=== PATIENT | male | born 1995 | race Caucasian/White ===

== ENCOUNTER 2023-01-05 10:32 | Outpatient (CLI) | payer OTHER, SELFPAY | END 2023-01-05 10:33 | disposition home or self-care (01) | PROVIDERS: Visit Provider Internal Medicine | DX: R74.01 Elevation of levels of liver transaminase levels (principal); E78.1 Pure hyperglyceridemia; F41.9 Anxiety disorder, unspecified | CPT/HCPCS: 80053; 80061 ==

== ENCOUNTER 2023-10-25 00:40 | Emergency (ER) | payer OTHER, SELFPAY ==
[2023-10-25 00:46] VITALS: BP 115/78; PULSE 80; RESP 16; TEMP 36.6; O2SAT 97; BMI 31.9
--- NOTE | 2023-10-25 01:00 | CRLHL7_ITS ---
For Patients: As a result of the Cures Act, medical imaging exams and procedure reports are released immediately into your electronic medical record. You may view this report before your referring provider. If you have questions, please contact your health care provider. Indication: Dropped weight on 1st metatarsal area Technique: Three views of the left foot Comparison: None Findings/Impression: Soft tissue contusion along the dorsal distal foot with no acute fracture or dislocation appreciated. Dictated by Mateo Rodriguez MD @ 10/25/2023 1:40:10 AM (Electronically Signed)
--- NOTE | 2023-10-25 01:09 | ED_ITS ---
HPI - Extremity Injury (Lower) General Date Seen: 10/25/23 Chief Complaint: Extremity Pain/Injury, Lower Stated Complaint: left foot pain Time Seen by Provider: 10/25/23 00:59 Source: patient Mode of arrival: ambulatory Limitations: no limitations History of Present Illness HPI Narrative: Patient is a 27-year-old male presenting to the emergency department for left foot pain. He states about 40 minutes prior to arrival he jumped 25 lb weight on top of his left foot while exercising. Adopted at about the base of the great toe. No other injuries noted. Is not taking anything for pain. States the area feels slightly numb but denies any other injuries. No other concerns noted at this time. Related Data Home Medications ?Medication ?Instructions ?Recorded ?Confirmed escitalopram oxalate 10 mg tablet 10 mg PO QDAY 01/05/23 03/03/23 Previous Rx's ?Medication ?Instructions ?Recorded alprazolam 0.25 mg tablet 0.25 mg PO BID PRN anxiety #10 tabs 01/05/23 Allergies Allergy/AdvReac Type Severity Reaction Status Date / Time No Known Drug Allergies Allergy Verified 10/25/23 00:46 Review of Systems Narrative: Pertinent systems reviewed and were negative unless stated in HPI PFSH PFSH Medical History (Updated 10/25/23 @ 01:49 by Scotty Francois DO) Anxiety ?F41.9 - Anxiety disorder, unspecified (ICD-10) Elevated liver transaminase level ?R74.01 - Elevation of levels of liver transaminase levels (ICD-10) Hypertriglyceridemia ?E78.1 - Pure hyperglyceridemia (ICD-10) Cholesteatoma ?H71.90 - Unspecified cholesteatoma, unspecified ear (ICD-10) Social History (Updated 01/05/23 @ 15:55 by Odette Richardson ~ [facility]) What is your current living situation?: I presently have a place to live Problems where you live: declined to answer In the past 12 months, utilities in danger of being shut off: no In past 12 months, lack of transportation kept you from medical appts, meetings, work, or getting things needed for daily living: no In the past 12 mos, have been you worried that your food would run out before you had money to buy more?: never true In the past 12 mos, the food you bought just didn't last and you didn't have money to buy more?: never true Smoking Status: Never smoker How often do you have a drink containing alcohol: never AUDIT-C Alcohol total score: 0 Non-prescribed substance use: denies use How often does anyone, including family, friends and others, physically hurt you : never How often does anyone, including family, friends and others, insult or talk down to you: never How often does anyone, including family, friends and others, threaten you with harm: never How often does anyone, including family, friends and others, scream or curse at you: never Little interest or pleasure in doing things: not at all Feeling down, depressed, or hopeless: more than half the days Exam Narrative: Exam Narrative: Const: Well-nourished, Well-developed, in mild distress Eyes: PERRL, no conjunctival injection, and symmetrical lids HENT: Atraumatic external nose and ears. Moist mucous membranes. Cardiovascular: Cap refills less than 2 seconds bilateral toes MSK:Extremities w/o deformity, decreased range of motion to the left great toe secondary to pain. Tenderness noted to the dorsal aspect of the base of the left great toe but no tenderness noted to the rest of the dorsal foot. No tenderness noted to the plantar foot. No tenderness around the ankle Skin: Warm, Dry. No rashes or lesions. Neuro: Normal Muscle tone, No focal neurological deficits. Psych: Awake, Alert, & Oriented x3. Appropriate mood and affect. Const: Vital Signs, click to edit/add: Vital Signs - 24 hr 10/25/23 00:46 Temperature 97.8 F Pulse Rate [Pulse Oximeter] 80 Respiratory Rate 16 Blood Pressure [Ri ght Upper Arm] 115/78 Pulse Oximetry 97 Oxygen Delivery Me thod Room Air Course Vital Signs Vital signs: Initial Vital Signs Temperature 97.8 F 10/25/23 00:46 Temperature Source Temporal Artery Scan 10/25/23 00:46 Pulse Rate 80 10/25/23 00:46 Respiratory Rate 16 10/25/23 00:46 Blood Pressure 115/78 10/25/23 00:46 Blood Pressure Mean 90 10/25/23 00:46 Blood Pressure Position Sitting 10/25/23 00:46 Pulse Oximetry 97 10/25/23 00:46 Oxygen Delivery Method Room Air 10/25/23 00:46 Vital Signs Temperature 97.8 F 10/25/23 00:46 Pulse Rate 80 10/25/23 00:46 Respiratory Rate 16 10/25/23 00:46 Blood Pressure 115/78 10/25/23 00:46 Pulse Oximetry 97 10/25/23 00:46 Oxygen Delivery Method Room Air 10/25/23 00:46 Temperature 97.8 F 10/25/23 00:46 Pulse Rate 80 10/25/23 00:46 Respiratory Rate 16 10/25/23 00:46 Blood Pressure 115/78 10/25/23 00:46 Pulse Oximetry 97 10/25/23 00:46 Oxygen Delivery Method Room Air 10/25/23 00:46 MDM - Extremity Injury (Lower) MDM Narrative Medical decision making narrative: Patient is a 27-year-old male presenting for foot pain after dropping a weight on it. He is neurovascular intact at this time. X-ray of the foot will be ordered. Is not requesting pain medication at this time. X-ray reviewed by myself the radiologist shows no acute fractures. He is doing well at this time. Will be discharged. Imaging Data Left foot x-ray: Radiologist's impression: Soft tissue contusion along the dorsal distal foot with no acute fracture or dislocation appreciated. Dictated by Mateo Rodriguez MD @ 10/25/2023 1:40:10 AM Discharge Plan Discharge Clinical Impression: Contusion Qualifiers: Encounter type: initial encounter Contusion area: foot Laterality: left Qualified Code(s): S90.32XA - Contusion of left foot, initial encounter Patient Disposition: Home, Self-Care Condition: Stable Instructions: Bone Bruise (ED) Additional Instructions: There are no signs of fracture any x-ray at this time. Return to emergency department for new or worsening symptoms. Take Tylenol and ibuprofen for pain. Prescriptions: No Action escitalopram oxalate 10 mg tablet 10 mg PO QDAY alprazolam 0.25 mg tablet 0.25 mg PO BID PRN (Reason: anxiety) Qty: 10 0RF Follow Up/Referrals: Provider,Not a Local [Primary Care Provider] - Stand Alone Forms: [facility] Info Instructions
== END 2023-10-25 01:57 | disposition home or self-care (01) ==
PROVIDERS: Emergency Provider Student in an Organized Health Care Education/Training Program
DX: S90.32XA Contusion of left foot, initial encounter (principal); W20.8XXA Other cause of strike by thrown, projected or falling object, initial encounter
CPT/HCPCS: 73630; 99282; 99283

== ENCOUNTER 2024-04-24 11:31 | Emergency (ER) | payer OTHER, SELFPAY ==
[2024-04-24 12:10] VITALS: BP 136/81; PULSE 94; RESP 18; TEMP 37; O2SAT 96; BMI 31.1
--- NOTE | 2024-04-24 12:58 | ED_ITS ---
HPI - Anxiety General Date Seen: 04/24/24 Chief Complaint: Anxiety Stated Complaint: Very Anxious Time Seen by Provider: 04/24/24 12:23 Source: patient Mode of arrival: ambulatory Limitations: no limitations History of Present Illness HPI narrative: Patient is a 28-year-old male presenting for anxiety and panic attacks. He states 4 months ago he ran out of his anxiety medication which has been handling his symptoms very well. Trauma he has been unable to see a another doctor to have refilled due to not having insurance up until recently. He does have an appointment scheduled for next week but states he feels like the anxiety has been getting worse over the past week is unsure if he will be able to manage at home without any medications. Denies fevers, chills, chest pain, shortness of breath, diarrhea, constipation headache, weakness, numbness. States he is not having a panic attack right now and overall feels okay at this moment. Denies homicidal or suicidal thoughts. Related Data Previous Rx's ?Medication ?Instructions ?Recorded alprazolam 0.25 mg tablet 0.25 mg PO BID #10 tabs 04/24/24 Allergies Allergy/AdvReac Type Severity Reaction Status Date / Time No Known Drug Allergies Allergy Verified 04/24/24 12:09 Review of Systems Status of ROS: Reports: 10 or more systems reviewed and unremarkable except as noted in History and below [facility] Medical History Anxiety ?F41.9 - Anxiety disorder, unspecified (ICD-10) Elevated liver transaminase level ?R74.01 - Elevation of levels of liver transaminase levels (ICD-10) Hypertriglyceridemia ?E78.1 - Pure hyperglyceridemia (ICD-10) Cholesteatoma ?H71.90 - Unspecified cholesteatoma, unspecified ear (ICD-10) Social History What is your current living situation?: I presently have a place to live Problems where you live: declined to answer In the past 12 months, utilities in danger of being shut off: no In past 12 months, lack of transportation kept you from medical appts, meetings, work, or getting things needed for daily living: no In the past 12 mos, have been you worried that your food would run out before you had money to buy more?: never true In the past 12 mos, the food you bought just didn't last and you didn't have money to buy more?: never true Smoking Status: Never smoker How often do you have a drink containing alcohol: never AUDIT-C Alcohol total score: 0 Non-prescribed substance use: denies use How often does anyone, including family, friends and others, physically hurt you : never How often does anyone, including family, friends and others, insult or talk down to you: never How often does anyone, including family, friends and others, threaten you with harm: never How often does anyone, including family, friends and others, scream or curse at you: never Exam Const: Vital Signs, click to edit/add: Vital Signs - 24 hr 04/24/24 12:10 Temperature 98.6 F Pulse Rate [Pulse Oximeter] 94 Respiratory Rate 18 Blood Pressure [Ri ght Upper Arm] 136/81 Pulse Oximetry 96 Oxygen Delivery Me thod Room Air Course Vital Signs Vital signs: Initial Vital Signs Temperature 98.6 F 04/24/24 12:10 Temperature Source Temporal Artery Scan 04/24/24 12:10 Pulse Rate 94 04/24/24 12:10 Respiratory Rate 18 04/24/24 12:10 Blood Pressure 136/81 04/24/24 12:10 Blood Pressure Mean 99 04/24/24 12:10 Pulse Oximetry 96 04/24/24 12:10 Oxygen Delivery Method Room Air 04/24/24 12:10 Vital Signs Temperature 98.6 F 04/24/24 12:10 Pulse Rate 94 04/24/24 12:10 Respiratory Rate 18 04/24/24 12:10 Blood Pressure 136/81 04/24/24 12:10 Pulse Oximetry 96 04/24/24 12:10 Oxygen Delivery Method Room Air 04/24/24 12:10 Temperature 98.6 F 04/24/24 12:10 Pulse Rate 94 04/24/24 12:10 Respiratory Rate 18 04/24/24 12:10 Blood Pressure 136/81 04/24/24 12:10 Pulse Oximetry 96 04/24/24 12:10 Oxygen Delivery Method Room Air 04/24/24 12:10 MDM - Anxiety MDM Narrative Medical decision making narrative: Patient is a 28-year-old male presenting for anxiety and no other symptoms. He is doing well. Was hoping he can have refills of his prescriptions at this time. I informed him we do not prescribed his anxiety medication out of the emergency department. I did look at his previously prescribed Xanax. It is it is a relatively low dose and I am comfortable giving him a small prescription to told him over until next week. Discharge Plan Discharge Clinical Impression: Anxiety Patient Disposition: Home, Self-Care Condition: Stable Instructions: Anxiety (ED) Additional Instructions: You will not be able to get further alprazolam from the emergency department so was important you use this prescription only when it is necessary to hold you over until your primary care follow-up on Thursday. Prescriptions: New alprazolam 0.25 mg tablet 0.25 mg PO BID Qty: 10 0RF Follow Up/Referrals: Provider,Not a Local [Primary Care Provider] - Stand Alone Forms: [employer] Info Instructions
== END 2024-04-24 13:17 | disposition home or self-care (01) ==
PROVIDERS: Emergency Provider Student in an Organized Health Care Education/Training Program
DX: F41.9 Anxiety disorder, unspecified (principal)
CPT/HCPCS: 99283

== ENCOUNTER 2024-04-25 17:36 | Outpatient (CLI) | payer OTHER, SELFPAY | END 2024-04-25 17:37 | disposition home or self-care (01) | PROVIDERS: PCP Registered Nurse; Visit Provider Registered Nurse | DX: E78.1 Pure hyperglyceridemia (principal); R74.01 Elevation of levels of liver transaminase levels; F41.9 Anxiety disorder, unspecified; F32.A Depression, unspecified | CPT/HCPCS: 80048; 82306; 84403 ==

== ENCOUNTER 2024-07-18 21:35 | Emergency (ER) | payer OTHER, BC, SELFPAY ==
[2024-07-18 21:36] VITALS: BP 137/83; PULSE 98; RESP 20; TEMP 36.5; O2SAT 98; BMI 31.7
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
[2024-07-18 22:16] LABS: Appearance Urine Clear (Clear); Bilirubin Urine Negative (Negative); Blood Urine Negative (Negative); Color Urine Yellow (Yellow); Glucose Urine Negative (Negative); Ketones Urine Negative (Negative); Leukocyte Esterase Urine Negative (Negative); Nitrite Urine Negative (Negative); Protein Urine Negative (Negative); Urobilinogen Urine 0.2 (0.2-1.0)
[2024-07-18 22:52] LABS: RBC Urine 0-2 (0-2); Squamous Epithelial Cell Urine Few (None-Few); WBC Urine 0-2 (0-5)
[2024-07-18 22:54] LABS: Basophils Absolute Auto 0.06 K/uL (0.00-0.30); Basophils Percent Auto 0.6 % (0.0-3.0); Eosinophils Absolute Auto 0.05 K/uL (0.00-0.50); Eosinophils Percent Auto 0.5 % (0.0-7.0); Hematocrit 47.3 % (37.0-53.0); Hemoglobin* 15.9 gm/dL (13.5-17.5); Immature Granulocytes Abs Auto 0.12 K/uL (0.00-0.30); Immature Granulocytes Pct Auto 1.2 %; Lymphocytes Percent Auto 14.4 % (20-44); Mean Corpuscular HGB Conc 34 gm/dL (32-36); Mean Corpuscular Hemoglobin 30 pg (26-34); Mean Corpuscular Volume 88 fL (80-100); Neutrophils Percent Auto 76.3 % (42.0-72.0); Platelet Count* 199 K/uL (140-440); RDW Coefficient of Variation % 12.5 % (11.5-15.5); Red Blood Count 5.39 m/uL (4.30-5.90); White Blood Count* 10.31 K/uL (4.50-11.00)
[2024-07-18 22:56] LABS: Albumin* 4.6 g/dL (3.3-5.0); Chloride* 104 mmol/L (96-114); Potassium* 3.9 mmol/L (3.6-5.1); Sodium* 141 mmol/L (135-149)
[2024-07-18 22:58] LABS: Blood Urea Nitrogen* 11 mg/dL (5-24); Creatinine* 0.8 mg/dL (0.5-1.5); Est. Creatinine Clearance* 143.21; Estimated Glomerular Filt Rate 124 ml/min; Slide Review Reflex No
[2024-07-18 22:59] LABS: Alanine Aminotransferase* 60 U/L (4-50); Alkaline Phosphatase* 61 U/L (40-150); Anion Gap 7 mEq/L (7-15); Aspartate Amino Transferase* 43 U/L (12-35); Bilirubin Direct* 0.3 mg/dL (0.0-0.5); Bilirubin Total* 0.6 mg/dL (0.1-1.5); Calcium* 9.3 mg/dL (8.4-10.6); Carbon Dioxide* 30 mmol/L (20-32); Glucose* 80 mg/dL (60-115); Total Protein* 7.6 g/dL (6.0-8.3)
[2024-07-18 23:16] VITALS: BP 127/93; PULSE 79; RESP 18; TEMP 36.6; O2SAT 98
== END 2024-07-18 23:22 | disposition home or self-care (01) ==
PROVIDERS: Emergency Provider Emergency Medicine; PCP Registered Nurse
DX: R25.8 Other abnormal involuntary movements (principal); R35.0 Frequency of micturition; F41.9 Anxiety disorder, unspecified; Z79.899 Other long term (current) drug therapy
CPT/HCPCS: 36415; 80048; 80076; 81001; 84443; 85025; 93005; 99284

== ENCOUNTER 2024-07-22 09:29 | Outpatient (CLI) | payer OTHER, BC, SELFPAY | END 2024-07-22 09:30 | disposition home or self-care (01) | PROVIDERS: PCP Registered Nurse; Visit Provider Registered Nurse | DX: R74.8 Abnormal levels of other serum enzymes (principal); E55.9 Vitamin D deficiency, unspecified; E29.1 Testicular hypofunction | CPT/HCPCS: 80061; 80076; 82306; 84403 ==

== ENCOUNTER 2024-08-05 08:10 | Outpatient (CLI) | payer OTHER, BC, SELFPAY | END 2024-08-05 08:11 | disposition home or self-care (01) | LOC: NFLDREF 08-07 06:12 | PROVIDERS: PCP Registered Nurse; Referring Provider Registered Nurse; Visit Provider Registered Nurse | DX: R74.8 Abnormal levels of other serum enzymes (principal) | CPT/HCPCS: 80076 ==

== ENCOUNTER 2024-08-25 09:53 | Outpatient (CLI) | payer OTHER, BC, SELFPAY ==
--- NOTE | 2024-08-25 10:00 | CRLHL7_ITS ---
For Patients: As a result of the Century Cures Act, medical imaging exams and procedure reports are released immediately into your electronic medical record. You may view this report before your referring provider. If you have questions, please contact your health care provider. Indication: Chronic sinusitis, ear pain, tinnitus. Technique: Noncontrast CT of the paranasal sinuses with multiplanar reconstruction utilizing bone and soft tissue algorithms. Comparison: None available. Findings: Frontal sinuses: Clear. Maxillary sinuses: Trace diffuse mucosal thickening. Patent ostiomeatal complexes. Ethmoid sinuses: Trace diffuse paranasal sinus mucosal thickening. Sphenoid sinuses: Small mucosal polyp on the right. Otherwise clear with patent ostia. Nasal cavity: Mild leftward deviation of the nasal septum with a 4 mm leftward projecting septal spur. Other: Symmetric nasopharynx. Unremarkable orbits and imaged intracranial structures. Impression: 1. Trace diffuse mucosal thickening throughout the ethmoid and maxillary sinuses. 2. Mild leftward deviation of the nasal septum with a 4 mm leftward projecting septal spur. Please note that all CT scans at this facility use dose modulation, iterative reconstruction, and/or weight-based dosing when appropriate to reduce radiation dose to as low as reasonably achievable. Dictated by Berny Shields MD @ 08/28/2024 2:35:07 PM (Electronically Signed)
== END 2024-08-25 09:54 | disposition home or self-care (01) ==
LOC: CT 09:55
PROVIDERS: PCP Family Medicine; Visit Provider Otolaryngology
DX: J32.9 Chronic sinusitis, unspecified (principal); J32.0 Chronic maxillary sinusitis; J32.2 Chronic ethmoidal sinusitis; H93.19 Tinnitus, unspecified ear; J34.2 Deviated nasal septum; H92.09 Otalgia, unspecified ear; H71.90 Unspecified cholesteatoma, unspecified ear
CPT/HCPCS: 70480; 70486

== ENCOUNTER 2024-08-25 10:11 | Outpatient (CLI) | payer OTHER, BC, SELFPAY ==
--- NOTE | 2024-08-25 10:30 | CRLHL7_ITS ---
For Patients: As a result of the 21st Century Cures Act, medical imaging exams and procedure reports are released immediately into your electronic medical record. You may view this report before your referring provider. If you have questions, please contact your health care provider. INDICATION: Ear pain. Tinnitus History of cholesteatoma. COMPARISON: None available. TECHNIQUE: Noncontrast CT of the paranasal sinuses. FINDINGS: Right: Opacification of the right mastoid air cells. Mastoid antrum however remains clear. There is soft tissue density within the epitympanum within the superior aspect of Prussak`s space (series 7, image 58) with blunting of the scutum. Cholesteatoma cannot be excluded. No erosive changes of the ossicles. Marked thinning of tegmen tympani. Focal dehiscence cannot be excluded. Normal tympanic membrane. No opacification of sinus tympani. Normal EAC. Normal mineralization the otic capsule. Normal cochlea vestibule. Normal IAC. Left: The large air fills cavity of the mastoid air cells and mastoid antrum and extending into the middle ear cavity with likely resection of the ossicles. Normal mineralization the otic capsule. Normal cochlea and vestibule. Normal IAC. Within the posterior-inferior aspect left mastoid bone, there is an expansile ovoid soft tissue mass measures approximately 15 x 17 mm (best seen on series 2, image 33) with dehiscence of the outer cortex and inner cortex which abuts the confluence of the left transverse and sigmoid dural venous sinuses. No surrounding inflammatory change. Other: Visualized paranasal sinuses are clear. IMPRESSION: 1. On the right, soft tissue density within the epitympanum and superior aspect of Prussak`s space. Blunting of the scutum. Findings may represent a cholesteatoma. Marked thinning of tegmen tympani and focal dehiscence can not be excluded 2. On the left postop changes of mastoidectomy with a large air-filled cavity of the mastoid air cells and mastoid antrum extending into the middle ear cavity. Resection of the ossicles. 3. Expansile ovoid soft tissue mass of the posterior inferior aspect of the left mastoid bone with dehiscence of the outer cortex and inner cortex. Findings indeterminate and may be secondary to postoperative changes. Atypical cholesteatoma can not be excluded. Please note that all CT scans at this facility use dose modulation, iterative reconstruction, and/or weight-based dosing when appropriate to reduce radiation dose to as low as reasonably achievable. Dictated by Ronald Shields MD @ 08/28/2024 3:56:54 PM (Electronically Signed)
== END 2024-08-25 10:12 | disposition home or self-care (01) ==
LOC: CT 10:11
PROVIDERS: PCP Family Medicine; Visit Provider Otolaryngology
DX: H92.09 Otalgia, unspecified ear (principal); H71.90 Unspecified cholesteatoma, unspecified ear; H93.19 Tinnitus, unspecified ear
CPT/HCPCS: 70480

== ENCOUNTER 2024-09-29 07:59 | Outpatient (CLI) | payer OTHER, BC, SELFPAY ==
--- NOTE | 2024-10-11 11:45 | W.PM.SLEEP ---
Sleep Study Details Details Interpreting Provider: Fidelia Date of Sleep Study: 09/29/24 Sleep Study Details: STUDY TYPE:? Home unattended ? BMI:? 31.56 ORDERING PROVIDER:? Fidelia INDICATION:? Concern about sleep apnea ? SLEEP SUMMARY:? 420 minutes monitored RESPIRATORY SUMMARY:? AHI 15 per rule 1A, 8.9 per CMS guideline Low oxygen 77 3.3% of study oxygen less than 90% Snoring 95% PERIODIC LIMB MOVEMENTS OF SLEEP:? Not recorded CARDIAC:? Range 48-103, mean 61.7 beats per minute IMPRESSION:? Mild obstructive sleep apnea RECOMMENDATION: Treatment options include CPAP, dental appliance and/or airway expansion surgery.
== END 2024-09-29 08:00 | disposition home or self-care (01) ==
LOC: SLEEP 08:00
PROVIDERS: PCP Family Medicine; Visit Provider Otolaryngology
DX: G47.33 Obstructive sleep apnea (adult) (pediatric) (principal)
CPT/HCPCS: 95806